=== PATIENT | male | born 1985 | race Caucasian/White ===

== ENCOUNTER 2018-05-06 07:38 | Emergency (ER) | payer BC, OTHER ==
--- NOTE | 2018-05-06 09:26 | UC ---
General HPI - HPI Summary HPI Summary: Pleasant 32 yo gentleman presents c/o pain in midback, just left of thoracic spine. Sx occurrred after a series of repetitive motions at work this am approx 6am. Pain did not occur during these motions (he works as as senior maintenance machinist) , but afterwards when he was trying to unscrew something. No fever / chills. No p/d Did feel pain and weakness, better now. Although still hurts. Hx of similar approx 6 mo ago, seen by pcp (freya lugo NP), was going to to get further imaging but has not been able to schedule. No rash, no recent illness. - History of Current Complaint Chief Complaint: UCBackPain Stated Complaint: WC BACK INJURY Time Seen by Provider: 05/06/18 08:27 Hx Obtained From: Patient Pain Intensity: 7 - Allergy/Home Medications Allergies/Adverse Reactions: Allergies Allergy/AdvReac Type Severity Reaction Status Date / Time No Known Allergies Allergy Verified 05/06/18 08:00 PMH/Surg Hx/FS Hx/Imm Hx Previously Healthy: Yes - Surgical History Surgical History: None - Family History Known Family History: Positive: Unknown - Social History Alcohol Use: None Substance Use Type: None Smoking Status (MU): Former Smoker Amount Used/How Often: very rarely with drinking Review of Systems All Other Systems Reviewed And Are Negative: Yes Constitutional: Positive: Negative Skin: Positive: Negative Eyes: Positive: Negative ENT: Positive: Negative Respiratory: Positive: Negative Cardiovascular: Positive: Negative Gastrointestinal: Positive: Negative Genitourinary: Positive: Negative Motor: Positive: Other - see hpi Musculoskeletal: Positive: Other: - see hpi Neurological: Positive: Other - see hpi Psychological: Positive: Negative Is Patient Immunocompromised?: No Physical Exam Triage Information Reviewed: Yes Appearance: Well-Appearing, Ill-Appearing Vital Signs: Initial Vital Signs Temp 97.7 F 05/06/18 07:52 Pulse 74 05/06/18 07:52 Resp 18 05/06/18 07:52 BP 147/78 05/06/18 07:52 Pulse Ox 97 05/06/18 07:52 Vital Signs Reviewed: Yes Eye Exam: Normal ENT Exam: Normal Neck exam: Normal Neck: Positive: Supple, Nontender Respiratory Exam: Normal Respiratory: Positive: Chest non-tender, Lungs clear, Normal breath sounds, No respiratory distress, No accessory muscle use Cardiovascular Exam: Normal Cardiovascular: Positive: RRR, No Murmur, Pulses Normal, Brisk Capillary Refill Abdominal Exam: Normal Abdomen Description: Positive: Nontender Bowel Sounds: Positive: Present Musculoskeletal Exam: Other - Tender mid thoracic region, just paraspinal. Mild spasm. Good hand grasps bilat, ok 1st and 5th able to do. Painful abduct and flex more than 90deg L. Able to elevate a little more with R but still painful. R/U 2+. Distal and ax n sen present. Cap refill good. Neurological Exam: Normal Psychological Exam: Normal Skin Exam: Normal Course/Dx - Course Course Of Treatment: Reviewed xrays with pt, he will f/u with PCP, this week if possible. Questions as posed answered to the best of my ability. - Diagnoses Provider Diagnosis: Strain of mid-back, Degenerated intervertebral disc Discharge - Sign-Out/Discharge Documenting (check all that apply): Patient Departure All imaging exams completed and their final reports reviewed: Yes - Discharge Plan Condition: Stable Disposition: HOME Prescriptions: Cyclobenzaprine TAB* [Flexeril 10 MG TAB*] 10 mg PO TID PRN #21 tab MDD 3 PRN Reason: Spasms Ibuprofen TAB* [Motrin TAB* 600 MG] 600 mg PO Q8H PRN #30 tab PRN Reason: Pain Patient Education Materials: Thoracic Back Strain (ED) Forms: *Work Release Referrals: Shelbie Lugo NP [Primary Care Provider] - Additional Instructions: Follow up with Freya Lugo NP this week. Seek medical attention for worse or new problems. - Billing Disposition and Condition Condition: STABLE Disposition: Home
[2018-05-06 10:19] VITALS: BP 147/86
[2018-05-06] MEDS ORDERED: Ibuprofen TAB* 600 MG PO ONE (10:32)
[2018-05-06] MEDS ORDERED: Cyclobenzaprine TAB* 10 MG PO ONE (10:33)
== END 2018-05-06 10:39 | disposition home or self-care (01) ==
LOC: UCEAST 07:38
DX: S29.012A Strain of muscle and tendon of back wall of thorax, initial encounter (principal); G31.89 Other specified degenerative diseases of nervous system; Z87.891 Personal history of nicotine dependence; X50.3XXA Overexertion from repetitive movements, initial encounter; Y92.9 Unspecified place or not applicable; Y99.0 Civilian activity done for income or pay
CPT/HCPCS: 72070; 72110; 99202; A9270-GY; G0463